=== PATIENT | female | born 1950 | race Caucasian/White ===

== ENCOUNTER → 2020-08-22 09:44 | Outpatient (CLI) | payer MEDICARE, SELFPAY ==
--- NOTE | ~2020-08-22 | CT_ITS ---
EXAMINATION: CT abdomen pelvis w con DATE: 08/22/2020 10:14 INDICATION: Abdominal distention, irregular bowel movements, acid reflux TECHNIQUE: Computed tomography (CT) of the abdomen and pelvis was performed with 100 cc Omnipaque 350 intravenous contrast. Automated exposure control and iterative reconstruction technique were employe d. Exam dose: 478.40 mGy-cm total exam DLP. COMPARISON: None. FINDINGS: Bilateral breast implants. There is discoid atelectasis or scarring in the medial segment of the middle lobe and minimal bibasil ar dependent lower lobe atelectasis. Heart size is within normal limits. No pericardial or pleural effusion. There are stones in the dependent aspect of the gallbladder and at the gallbladder neck. No gallbladd er wall thickening is evident. No hepatic, splenic, pancreatic, adrenal space-occupying mass lesion. Approximately 8 mm lower pole right renal cyst and 12 mm inferior tip left renal cyst. Normal caliber of the abdominal aorta. No intraperitoneal or retroperitoneal or pelvic mass lesion o r lymphadenopathy. Normal appendix. Diverticulosis of the left colon predominantly; no evidence of diverticulitis. No bowel obstruction or bowel wall thickening or pneumatosis. No intraperitoneal free air. Approximately 5 cm circumscribed uterine mass, likely a large uterine fibroid. The urinary bladder is unremarkable. Degenerative changes of the lumbar spine, including prominent degenerative disc disease at L1-2 and L 2-3. There is degenerative change at the apophyseal joints with associated grade 1 anterolisthesis at L4-5 . IMPRESSION: Cholelithiasis Bilateral renal cysts Diverticulosis predominantly of the colon; no CT evidence of diverticulitis Probable 5 cm uterine fibroid Reviewed, dictated and finalized at [facility]. Reviewed, dictated and finalized at [facility].
[2020-08-22 10:03] LABS: Estimated Glomerular Filt Rate > 60
== END ==
PROVIDERS: PCP Family Medicine; Visit Provider Family Medicine
DX: R14.0 Abdominal distension (gaseous) (principal); K80.20 Calculus of gallbladder without cholecystitis without obstruction; N28.1 Cyst of kidney, acquired; K57.90 Diverticulosis of intestine, part unspecified, without perforation or abscess without bleeding; D25.9 Leiomyoma of uterus, unspecified
CPT/HCPCS: 74177; Q9967

== ENCOUNTER 2021-09-26 14:25 | Outpatient (CLI) | payer MEDICARE, SELFPAY ==
--- NOTE | ~2021-09-26 | XR_ITS ---
EXAMINATION: XR chest 2V 09/26/2021 14:53 INDICATION: Cough PROCEDURE: 2 view chest COMPARISON: 12/22/2015 FINDINGS: The lungs are clear. The cardiomediastinal silhouette is within normal limits. There are no pleural effusions. There is no pneumothorax suspected. There is dextroscoliosis of the thoracic spine. IMPRESSION: 1: NO ACUTE CARDIOPULMONARY DISEASE. Reviewed, dictated and finalized at location [facility]. 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
== END 2021-09-26 14:26 | disposition home or self-care (01) ==
LOC: ANHIMG 14:35
PROVIDERS: PCP Family Medicine; Visit Provider Nurse Practitioner Family
DX: R05.9 Cough, unspecified (principal)
CPT/HCPCS: 71046

== ENCOUNTER 2024-07-02 08:31 | Day surgery (SDC) | payer MEDICARE, SELFPAY ==
[2024-05-22 11:27] VITALS: BMI 23.2
[2024-06-17 10:07] VITALS: BMI 23.6
[2024-07-02 08:58] VITALS: BP 142/59; PULSE 73; RESP 16; TEMP 36.6; O2SAT 100
--- NOTE | 2024-07-02 09:05 | PM.HPGS ---
History of Present Illness History of Present Illness Consent: Risks, benefits, and alternatives have been discussed and questions answered. Patient agrees to proceed with procedure. Chief complaint: dyspghagia, BRBPR Narrative: Luna Chavarria Caia is a 74 year old female referred for both colonoscopy and EGD. States that she had bright red blood per rectum on 1 occasion 1 month ago. She denies any abdominal or rectal pain. She is referred for further evaluation. Patient gives a history that in the distant past she had colon polyps. She reports a colonoscopy 4-5 years ago that was unremarkable. Additionally patient complains of food catching in the mid substernal portion of the chest. She states she does indeed get heartburn. She takes no medications for this. She take sort of [id number]-[id number] enzyme which she states helps. She is fearful of take Prilosec. She does take baking soda which helps to some degree. family history is noncontributory. Patient referred today for both colonoscopy and EGD. Review of Systems Review of Systems: All systems reviewed & are unremarkable except as noted in HPI and below PMFSH Past Medical History Medical History (Updated 05/12/24 @ 08:14 by Virgen Lantigua APRN) Abdominal distension Colon polyp Dysphagia Encounter for gynecological examination (general) (routine) without abnormal findings GERD without esophagitis Hematochezia History of breast cancer Hyperlipidemia Hypothyroidism Insomnia Leakage of breast implant Ptosis of both eyelids Ptosis of eyelid, right Screening for osteoporosis Skin lesion of back Wellness examination Surgical History Surgical History H/O breast reconstruction Family History Family History Father Cerebrovascular accident Mother Abdominal mass Sibling Myasthenia gravis Social History Social History Smoking status: Never smoker Tobacco type: cigarettes Second hand tobacco smoke exposure: Yes Alcohol intake: never Substance use: never Substance use type: does not use Living arrangements: alone Occupation/Education: retired Additional occupation/education comments: [employer] Gender identity (if verbalized by the patient): Female Spiritual care concerns: No Meds Home Medications and Allergies Home Medications Medication Instructions Recorded Confirmed Type valacyclovir 500 mg tablet 500 mg PO DAILY 08/24/20 09/05/24 History (Valtrex) ascorbic acid (vitamin C) 1,000 mg 1 g PO DAILY 09/05/22 07/02/24 History capsule biotin 10,000 mcg capsule 10,000 mcg PO DAILY 09/05/22 07/02/24 History cholecalciferol (vitamin D3) 50 50 mcg PO DAILY 09/05/22 07/02/24 History mcg (2,000 unit) capsule kathya seed oil-omega 3-6-9 1,000 mg 1 cap PO DAILY 05/06/24 07/02/24 History (630 mg-210 mg-72mg) capsule magnesium 250 mg tablet 250 mg PO DAILY 05/06/24 07/02/24 History melatonin 10 mg capsule 10 mg PO QHS 05/06/24 07/02/24 History estradiol 10 mcg vaginal tablet 10 mcg vaginal WEEKLY 06/17/24 07/02/24 History (Yuvafem) Allergies Allergy/AdvReac Type Severity Reaction Status Date / Time adhesive Allergy Unknown Rash Verified 07/02/24 08:57 iodine Allergy Unknown Rash Verified 07/02/24 08:57 tetracycline Allergy Unknown Rash Verified 07/02/24 08:57 Vital Signs Vital Signs - 24 hr 07/02/24 08:58 Temperature 98 F Pulse Rate 73 Respiratory Rate 16 Blood Pressure 142/59 H Pulse Oximetry 100 Oxygen Delivery Room Air Exam Narrative: Physical exam reveals patient vital signs stable. HEENT exam is unremarkable. Patient is anicteric. Lungs are clear to auscultation and percussion. Heart is without murmur or extra sounds. Abdominal exam bowel sounds are present soft nontender with no hepatosplenomegaly
[2024-07-02] MEDS: LACTATED RINGERS 1,000 ML 150 ML IV CONT (09:08)
--- NOTE | 2024-07-02 09:22 | WPDANESEPPF ---
Anes - Initial Pre Proc Eval Procedure: Operation Date: 07/02/24 11:00 Proposed Procedures p Esophagogastroduodenoscopy - Rony Fajardo MD s Diagnostic Colonoscopy - Rony Fajardo MD Date/Time: 07/02/24 09:22 Surgeon: Rony Fajardo MD Pre Op Diagnosis: dyspghagia, BRBPR Patient Data Age: 74 Gender: F Height: 1.56 m Weight: 56.65 kg Last Vital Signs Temp 36.6 C 07/02/24 08:58 Pulse 73 07/02/24 08:58 Resp 16 07/02/24 08:58 BP 142/59 H 07/02/24 08:58 Pulse Ox 100 07/02/24 08:58 O2 Del Method Room Air 07/02/24 08:58 Allergies Allergy/AdvReac Type Severity Reaction Status Date / Time adhesive Allergy Unknown Rash Verified 07/02/24 08:57 iodine Allergy Unknown Rash Verified 07/02/24 08:57 tetracycline Allergy Unknown Rash Verified 07/02/24 08:57 Home Medications Medication Instructions Recorded Confirmed Type valacyclovir 500 mg tablet 500 mg PO DAILY 06/20/20 07/02/24 History (Valtrex) ascorbic acid (vitamin C) 1,000 mg 1 g PO DAILY 09/05/22 07/02/24 History capsule biotin 10,000 mcg capsule 10,000 mcg PO DAILY 09/05/22 07/02/24 History cholecalciferol (vitamin D3) 50 50 mcg PO DAILY 09/05/22 07/02/24 History mcg (2,000 unit) capsule kathya seed oil-omega 3-6-9 1,000 mg 1 cap PO DAILY 05/06/24 07/02/24 History (630 mg-210 mg-72mg) capsule magnesium 250 mg tablet 250 mg PO DAILY 05/06/24 07/02/24 History melatonin 10 mg capsule 10 mg PO QHS 05/06/24 07/02/24 History estradiol 10 mcg vaginal tablet 10 mcg vaginal WEEKLY 06/17/24 07/02/24 History (Yuvafem) Patient hx anesthesia problems: none Family hx anesthesia problems: none Results Review: All pre-operative results and documents have been reviewed as part of the pre-operative evaluation. [facility], [facility] Past Medical History Medical History (Updated 05/12/24 @ 08:14 by Virgen N. Ogden, ELECTRONICS ENGINEERING PROFESSOR) Abdominal distension Colon polyp Dysphagia Encounter for gynecological examination (general) (routine) without abnormal findings GERD without esophagitis Hematochezia History of breast cancer Hyperlipidemia Hypothyroidism Insomnia Leakage of breast implant Ptosis of both eyelids Ptosis of eyelid, right Screening for osteoporosis Skin lesion of back Wellness examination Surgical History Surgical History (Updated 07/02/24 @ 09:22 by Armaan Talbert DO) H/O breast reconstruction History of bilateral mastectomy Family History Family History Father Cerebrovascular accident Mother Abdominal mass Sibling Myasthenia gravis Social History Social History Smoking status: Never smoker Tobacco type: cigarettes Second hand tobacco smoke exposure: Yes Alcohol intake: never Substance use: never Substance use type: does not use Living arrangements: alone Occupation/Education: retired Additional occupation/education comments: [employer] Gender identity (if verbalized by the patient): Female Spiritual care concerns: No Anes - Eval Final PreProcedure Day of Procedure 07/02/24 09:22 Patient weight: normal Heart: regular rate and rhythm Lungs: clear to auscultation and normal air movement Airway: Mallampati scale class II Neurological: alert and oriented Last oral intake: >/= 8 hours ASA classification: II Emergent: no Anesthetic plan: proceed Anesthesia type and monitoring: general GIVS and standard monitoring Results Review: All pre-operative results and documents have been reviewed as part of the pre-operative evaluation. Informed Consent: The patient's anesthetic plan and its attendant risks and benefits were discussed with the patient/family/POA. Questions were solicited and answers provided to the satisfaction of the patient/family/POA.
[2024-07-02 10:43] VITALS: BP 99/45; PULSE 82; RESP 12; O2SAT 99
--- NOTE | 2024-07-02 10:43 | WPDANESPN ---
Anes - Prog Note Post-Op Date/Time: 07/02/24 10:43 Cardiovascular status: normal Respiratory status: normal Airway patency: baseline Mental status: baseline Post-Op hydration status: normal Vital Signs: Last Vital Signs Temp 36.6 C 07/02/24 08:58 Pulse 73 07/02/24 08:58 Resp 16 07/02/24 08:58 BP 142/59 H 07/02/24 08:58 Pulse Ox 100 07/02/24 08:58 O2 Del Method Room Air 07/02/24 08:58 Pain Score (VAS): 0 I/O: Intake & Output 07/01/24 07/02/24 07/02/24 23:59 07:59 15:59 Intake Total 400 Balance 400 Post-procedural complaints: none Patient Feedback: Patient satisfied with anesthetic care. Other Findings: Patient vital signs back to baseline. Patient denies nausea and vomiting. Patient's pain under control. Patient OK for discharge.
[2024-07-02 10:53] VITALS: BP 106/65; PULSE 74; RESP 16; O2SAT 100
[2024-07-02 11:03] VITALS: BP 115/69; PULSE 73; RESP 16; O2SAT 100
== END 2024-07-02 11:15 | disposition home or self-care (01) ==
PROVIDERS: PCP Family Medicine; Visit Provider Internal Medicine Gastroenterology
PROC: 0DJ08ZZ Inspection of Upper Intestinal Tract, Via Natural or Artificial Opening Endoscopic (ICD-10-PCS; CPT 43235; principal; 2024-07-02 11:00)
PROC: 0DJD8ZZ Inspection of Lower Intestinal Tract, Via Natural or Artificial Opening Endoscopic (ICD-10-PCS; CPT 45378; 2024-07-02 11:00)
DX: K92.1 Melena (principal); D12.8 Benign neoplasm of rectum; K57.30 Diverticulosis of large intestine without perforation or abscess without bleeding; K64.8 Other hemorrhoids; Q39.4 Esophageal web; K21.00 Gastro-esophageal reflux disease with esophagitis, without bleeding
CPT/HCPCS: 45385; 43450

== ENCOUNTER 2024-07-02 14:42 | Outpatient (NON) | payer MEDICARE, SELFPAY | END 2024-07-02 14:43 | disposition home or self-care (01) | LOC: ANHLAB 14:50 | PROVIDERS: PCP Family Medicine; Visit Provider Internal Medicine Gastroenterology | DX: K63.5 Polyp of colon (principal) | CPT/HCPCS: 88305 ==